=== PATIENT | female | born 1965 | race Caucasian/White ===

== ENCOUNTER 2017-08-12 13:53 | Inpatient (IN) | payer MEDICAID ==
[~2017-08-12] VITALS: Ht 172.7 cm; Wt 78.4 kg
[2017-08-12] MEDS ORDERED: MORPHINE SULFATE 4 MG/ML, 1ML ONE (14:56)
[2017-08-12] MEDS ORDERED: ONDANSETRON 2MG/ML, 2ML ONE (14:57)
[2017-08-12 15:00] LABS: MEAN CORPUSCULAR HEMOGLOBIN 29.4 pg (27.0-34.8); MEAN CORPUSCULAR VOLUME 89.1 fL (80-100); MEAN PLATELET VOLUME 7.7 fL (7.4-10.4); PLATELET COUNT 327 x10^3/uL (130-400); RED BLOOD COUNT 3.77 x10^6/uL (3.82-5.3); RED CELL DISTRIBUTION WIDTH 16.2 % (9.6-15.2)
[2017-08-12] MEDS ORDERED: SODIUM CHLORIDE FLUSH 10ML SYR IVF ONE (15:00)
[2017-08-12] MEDS ORDERED: SODIUM CHLORIDE 0.9% 1,000ML IVBOLUS ONE ×3 (15:00→16:00)
[2017-08-12] MEDS ORDERED: MORPHINE SULFATE 4 MG/ML, 1ML IVPush PRN (15:00)
[2017-08-12] MEDS ORDERED: ONDANSETRON 2MG/ML, 2ML IVP ONE (15:00)
[2017-08-12 15:12] LABS: ALANINE AMINOTRANSFERASE 34 U/L (12-78); ALBUMIN 2.3 g/dL (3.4-5.0); ANION GAP 9 mmol/L (5-15); CALCIUM 8.2 mg/dL (8.5-10.1); CHLORIDE 99 mmol/L (98-107)
[2017-08-12 15:17] LABS: ALKALINE PHOSPHATASE 254 U/L (45-117); BILIRUBIN,TOTAL 1.5 mg/dL (0.2-1.0); CREATINE KINASE, TOTAL 29 U/L (26-192); CREATININE 0.71 mg/dL (0.55-1.02); TOTAL PROTEIN 7.2 g/dL (6.4-8.2); TROPONIN I < 0.015 ng/mL (0.000-0.045)
[2017-08-12 15:26] LABS: D-DIMER 2.21 ug/mlFEU (0.00-0.52); INTERNATIONAL NORMALIZED RATIO 1.1 (0.93-1.1); PROTHROMBIN TIME 11.3 Seconds (9.6-11.5)
[2017-08-12] MEDS ORDERED: IBUPROFEN 200 MG TABLET PO ONE (15:30)
[2017-08-12 15:36] LABS: MD YES
[2017-08-12] MEDS ORDERED: IBUPROFEN 200 MG TABLET ONE (15:37)
[2017-08-12 15:40] LABS: BAND#(MANUAL) 2.04 x10^3/uL; BANDS%(MANUAL) 8 % (0-7); HYPOCHROMIA 1+; LYMPH#(MANUAL) 2.81 x10^3/uL (1-3.4); LYMPHS% (MANUAL) 11 % (22-44); MONOS#(MANUAL) 1.28 x10^3/uL (0.3-2.7); MONOS% (MANUAL) 5 % (2-9); SEG#(MANUAL) 19.38 x10^3/uL (1.8-6.8); SEGS% (MANUAL) 76 % (42-75)
[2017-08-12 15:41] LABS: <PLATELET ESTIMATE> ADEQUATE; <PLT MORPHOLOGY> NORMAL PLT MORPH
[2017-08-12] MEDS ORDERED: CEFTRIAXONE PMX 1GM/50ML 50 ML ONE (15:59)
[2017-08-12] MEDS ORDERED: CEFTRIAXONE PMX 1GM/50ML 50 ML IVPB ONE (16:00)
[2017-08-12] MEDS ORDERED: AZITHROMYCIN 500 MG in SODIUM CHLORIDE 0.9% 250 ML IVPB ONE (16:00)
[2017-08-12] MEDS ORDERED: LAMO200T3 PO (16:29)
[2017-08-12] MEDS ORDERED: ARIP15TA3 PO (16:29)
[2017-08-12] MEDS ORDERED: CITA20TA5 PO (16:29)
[2017-08-12] MEDS ORDERED: HYDROcodone/APAP 5/325 TABLET PO PRN (16:30)
[2017-08-12] MEDS ORDERED: ONDANSETRON 2MG/ML, 2ML IVPush PRN (16:30)
[2017-08-12] MEDS ORDERED: POLYETHYLENE GLYCOL 17 GM PACKET PO PRN (16:30)
[2017-08-12] MEDS ORDERED: ONDANSETRON ODT 4 MG PO PRN (16:30)
[2017-08-12] MEDS ORDERED: LABETALOL 5MG/ML, 20ML IVPush PRN (16:30)
[2017-08-12 16:56] LABS: RAPID INFLUENZA A Negative (Negative); RAPID INFLUENZA B Negative (Negative)
[2017-08-12] MEDS ORDERED: OMNIPAQUE 350 MG/ML, 100ML BOTTLE ONE (16:56)
[2017-08-12 16:57] LABS: HEMOGLOBIN A1C 6.1 % (4.2-6.3)
[2017-08-12] MEDS: GUAIFENESIN 200 MG TABLET PO SCH ×2 (17:00→21:12)
[2017-08-12 19:20] VITALS: BP 92/60
[2017-08-12] MEDS: SODIUM CHLORIDE 0.9% 1,000 ML IV SCH ×2 (19:27→23:36)
[2017-08-12] MEDS ORDERED: DOXYCYCLINE 100MG TABLET PO ONE (21:00)
[2017-08-12] MEDS: DOXYCYCLINE 100MG TABLET PO SCH (21:11)
[2017-08-12] MEDS: ENOXAPARIN 40 MG/0.4 ML SQ SCH (21:12)
[2017-08-12] MEDS ORDERED: PNEUMOCOCCAL 23 VACCINE IM-VACC ONE (22:00)
[2017-08-12] MEDS ORDERED: FLU VACC QS2017-18 (36MOS+) UP/PF 0.5 ML IM-VACC ONE (22:00)
[2017-08-13 00:10] VITALS: BP 100/67
[2017-08-13] MEDS: GUAIFENESIN 200 MG TABLET PO SCH ×4 (04:37→20:46)
[2017-08-13 05:39] LABS: CHLORIDE 109 mmol/L (98-107)
[2017-08-13 05:44] LABS: BASOPHILS # (AUTO) 0.03 x10^3/uL (0-0.1); BASOPHILS % (AUTO) 0 % (0-1); EOSINOPHILS # (AUTO) 0.21 x10^3/uL (0-0.4); EOSINOPHILS % (AUTO) 2 % (1-7); LYMPHOCYTES # (AUTO) 1.48 x10^3/uL (1-3.4); LYMPHOCYTES % (AUTO) 11 % (22-44); MD NO; MEAN CORPUSCULAR HEMOGLOBIN 29.6 pg (27.0-34.8); MEAN CORPUSCULAR HGB CONC 32.8 g/dL (32.4-35.8); MEAN PLATELET VOLUME 7.7 fL (7.4-10.4); MONOCYTES # (AUTO) 1.05 x10^3/uL (0.2-0.8); MONOCYTES % (AUTO) 8 % (2-9); NEUTROPHILS # (AUTO) 10.63 x10^3/uL (1.8-6.8); NEUTROPHILS % (AUTO) 79 % (42-75); PLATELET COUNT 283 x10^3/uL (130-400); RED BLOOD COUNT 3.41 x10^6/uL (3.82-5.3); RED CELL DISTRIBUTION WIDTH 16.4 % (9.6-15.2)
[2017-08-13 06:05] LABS: ALBUMIN 1.9 g/dL (3.4-5.0); ALKALINE PHOSPHATASE 208 U/L (45-117); ANION GAP 8 mmol/L (5-15); BILIRUBIN,TOTAL 0.7 mg/dL (0.2-1.0); TOTAL PROTEIN 5.9 g/dL (6.4-8.2)
[2017-08-13 06:08] LABS: CALCIUM 8.1 mg/dL (8.5-10.1)
[2017-08-13 06:33] LABS: ALANINE AMINOTRANSFERASE 27 U/L (12-78); CREATININE 0.53 mg/dL (0.55-1.02)
[2017-08-13 07:52] VITALS: BP 120/76
[2017-08-13] MEDS: DOXYCYCLINE 100MG TABLET PO SCH ×2 (08:31→20:46)
[2017-08-13] MEDS: SENNA/DOCUSATE TABLET PO SCH (08:31)
[2017-08-13] MEDS: SODIUM CHLORIDE 0.9% 1,000 ML IV SCH ×2 (08:31→20:46)
[2017-08-13 14:04] VITALS: BP 112/68
[2017-08-13] MEDS: CEFTRIAXONE 2 GM in SODIUM CHLORIDE 0.9% 50 ML IV SCH (17:05)
[2017-08-13 20:27] VITALS: BP 133/82
[2017-08-13] MEDS: ENOXAPARIN 40 MG/0.4 ML SQ SCH (20:46)
[2017-08-14 02:30] VITALS: BP 126/72
[2017-08-14] MEDS: SODIUM CHLORIDE 0.9% 1,000 ML IV SCH ×2 (04:21→11:51)
[2017-08-14 05:18] LABS: ALBUMIN 1.9 g/dL (3.4-5.0); ANION GAP 9 mmol/L (5-15); CALCIUM 8.4 mg/dL (8.5-10.1); CHLORIDE 111 mmol/L (98-107)
[2017-08-14 05:19] LABS: CREATININE 0.47 mg/dL (0.55-1.02)
[2017-08-14 05:21] LABS: BASOPHILS # (AUTO) 0.02 x10^3/uL (0-0.1); BASOPHILS % (AUTO) 0 % (0-1); EOSINOPHILS % (AUTO) 4 % (1-7); LYMPHOCYTES # (AUTO) 1.42 x10^3/uL (1-3.4); LYMPHOCYTES % (AUTO) 18 % (22-44); MD NO; MEAN CORPUSCULAR HEMOGLOBIN 29.4 pg (27.0-34.8); MEAN CORPUSCULAR HGB CONC 33.1 g/dL (32.4-35.8); MEAN CORPUSCULAR VOLUME 88.7 fL (80-100); MEAN PLATELET VOLUME 7.4 fL (7.4-10.4); MONOCYTES # (AUTO) 0.61 x10^3/uL (0.2-0.8); MONOCYTES % (AUTO) 8 % (2-9); NEUTROPHILS # (AUTO) 5.71 x10^3/uL (1.8-6.8); NEUTROPHILS % (AUTO) 71 % (42-75); PLATELET COUNT 379 x10^3/uL (130-400); RED BLOOD COUNT 3.59 x10^6/uL (3.82-5.3); RED CELL DISTRIBUTION WIDTH 16.1 % (9.6-15.2)
[2017-08-14] MEDS: GUAIFENESIN 200 MG TABLET PO SCH ×4 (06:11→21:58)
[2017-08-14 07:19] VITALS: BP 133/81
[2017-08-14] MEDS ORDERED: POTASSIUM CHLORIDE 20 MEQ TAB.ER.PRT PO ONE (08:30)
[2017-08-14] MEDS ORDERED: ERGOCALCIFEROL 50,000 UNIT CAPSULE PO SCH (08:30)
[2017-08-14] MEDS: SENNA/DOCUSATE TABLET PO SCH (08:42)
[2017-08-14] MEDS: DOXYCYCLINE 100MG TABLET PO SCH ×2 (08:42→21:58)
[2017-08-14 14:00] VITALS: BP 145/83
[2017-08-14] MEDS: CEFTRIAXONE 2 GM in SODIUM CHLORIDE 0.9% 50 ML IV SCH (15:46)
[2017-08-14 18:29] LABS: MICROSCOPIC NOT IND
[2017-08-14 20:00] VITALS: BP 158/91
[2017-08-14] MEDS: ENOXAPARIN 40 MG/0.4 ML SQ SCH (21:00)
[2017-08-15 02:04] VITALS: BP 157/90
[2017-08-15] MEDS: GUAIFENESIN 200 MG TABLET PO SCH ×4 (06:13→21:56)
[2017-08-15 07:09] VITALS: BP 131/79
[2017-08-15 08:09] LABS: ALBUMIN 2.2 g/dL (3.4-5.0); ANION GAP 9 mmol/L (5-15); CALCIUM 8.9 mg/dL (8.5-10.1); CHLORIDE 107 mmol/L (98-107)
[2017-08-15 08:10] LABS: CREATININE 0.56 mg/dL (0.55-1.02)
[2017-08-15] MEDS: SENNA/DOCUSATE TABLET PO SCH (08:38)
[2017-08-15] MEDS: DOXYCYCLINE 100MG TABLET PO SCH ×2 (08:38→21:56)
[2017-08-15 09:16] LABS: BASOPHILS # (AUTO) 0.02 x10^3/uL (0-0.1); BASOPHILS % (AUTO) 0 % (0-1); EOSINOPHILS # (AUTO) 0.19 x10^3/uL (0-0.4); EOSINOPHILS % (AUTO) 3 % (1-7); LYMPHOCYTES % (AUTO) 21 % (22-44); MD NO; MEAN CORPUSCULAR HEMOGLOBIN 28.9 pg (27.0-34.8); MEAN CORPUSCULAR HGB CONC 32.9 g/dL (32.4-35.8); MEAN CORPUSCULAR VOLUME 87.9 fL (80-100); MEAN PLATELET VOLUME 7.1 fL (7.4-10.4); MONOCYTES % (AUTO) 7 % (2-9); NEUTROPHILS # (AUTO) 5.27 x10^3/uL (1.8-6.8); NEUTROPHILS % (AUTO) 70 % (42-75); PLATELET COUNT 454 x10^3/uL (130-400); RED CELL DISTRIBUTION WIDTH 16.5 % (9.6-15.2)
[2017-08-15] MEDS: CEFTRIAXONE PMX 2GM/50ML 50 ML IV SCH (11:30)
[2017-08-15 13:56] VITALS: BP 129/79
[2017-08-15 20:24] VITALS: BP 127/77
[2017-08-15] MEDS: ENOXAPARIN 40 MG/0.4 ML SQ SCH (21:00)
[2017-08-16 04:58] LABS: BASOPHILS # (AUTO) 0.08 x10^3/uL (0-0.1); BASOPHILS % (AUTO) 1 % (0-1); EOSINOPHILS # (AUTO) 0.36 x10^3/uL (0-0.4); EOSINOPHILS % (AUTO) 4 % (1-7); LYMPHOCYTES # (AUTO) 1.95 x10^3/uL (1-3.4); LYMPHOCYTES % (AUTO) 21 % (22-44); MD NO; MEAN CORPUSCULAR HEMOGLOBIN 29.6 pg (27.0-34.8); MEAN CORPUSCULAR HGB CONC 33.9 g/dL (32.4-35.8); MEAN CORPUSCULAR VOLUME 87.5 fL (80-100); MONOCYTES # (AUTO) 0.64 x10^3/uL (0.2-0.8); MONOCYTES % (AUTO) 7 % (2-9); NEUTROPHILS % (AUTO) 67 % (42-75); PLATELET COUNT 512 x10^3/uL (130-400); RED BLOOD COUNT 3.93 x10^6/uL (3.82-5.3); RED CELL DISTRIBUTION WIDTH 16.6 % (9.6-15.2)
[2017-08-16 05:06] LABS: ALBUMIN 2.4 g/dL (3.4-5.0); ANION GAP 8 mmol/L (5-15); CALCIUM 8.7 mg/dL (8.5-10.1); CHLORIDE 108 mmol/L (98-107); CREATININE 0.63 mg/dL (0.55-1.02)
[2017-08-16 05:51] VITALS: BP 128/78
[2017-08-16] MEDS: GUAIFENESIN 200 MG TABLET PO SCH (05:51)
[2017-08-16 05:53] VITALS: BP 128/78
[2017-08-16 06:43] VITALS: BP 116/64
[2017-08-16] MEDS ORDERED: DOXY100T PO (08:37)
[2017-08-16] MEDS ORDERED: CEFD300C37 PO (08:37)
[2017-08-16] MEDS: SENNA/DOCUSATE TABLET PO SCH (09:00)
[2017-08-16] MEDS: CEFTRIAXONE PMX 2GM/50ML 50 ML IV SCH (09:23)
[2017-08-16] MEDS: DOXYCYCLINE 100MG TABLET PO SCH (09:23)
== END 2017-08-16 10:43 | disposition home or self-care (01) | DRG 871 ==
LOC: ED 16:13 → EDIP 16:14 → ED 16:58 → 4EST 19:20
PROVIDERS: ADMIT Hospitalist; ATTEND Hospitalist
DX: A41.9 Sepsis, unspecified organism (principal); E43 Unspecified severe protein-calorie malnutrition; J96.01 Acute respiratory failure with hypoxia; J15.9 Unspecified bacterial pneumonia; E87.1 Hypo-osmolality and hyponatremia; R17 Unspecified jaundice; F17.210 Nicotine dependence, cigarettes, uncomplicated; D64.9 Anemia, unspecified; F31.9 Bipolar disorder, unspecified; R73.9 Hyperglycemia, unspecified; Z59.0 Homelessness; Z68.26 Body mass index [BMI] 26.0-26.9, adult
CPT/HCPCS: 36415; 71046; 71275; 80048; 80053; 81003; 82040; 82306; 82550; 83036; 83605; 83735; 84100; 84145; 84439; 84484; 85025; 85379; 85610; 85730; 87040; 87070; 87205; 87400; 90732; 93005; 96374; 96375; J0456; J0696; J1650; J2405; Q9967; J7030; J7050

== ENCOUNTER 2018-02-18 15:11 | Emergency (ER) | payer MEDICAID ==
[~2018-02-18] VITALS: Ht 172.7 cm; Wt 80.2 kg
[~2018-02-18 15:11] MED LIST: ARIP15TA3 PO; CEFD300C37 PO; CITA20TA6 PO; DOXY100T PO; LAMO200T3 PO
[2018-02-18 16:29] VITALS: BP 137/81
== END 2018-02-18 16:55 | disposition home or self-care (01) ==
LOC: ED 16:49
DX: K12.0 Recurrent oral aphthae (principal); Z76.0 Encounter for issue of repeat prescription; Z72.9 Problem related to lifestyle, unspecified; F17.200 Nicotine dependence, unspecified, uncomplicated
CPT/HCPCS: 99283